=== PATIENT | female | born 1935 | race Caucasian/White ===

== ENCOUNTER 2017-09-17 11:58 | Emergency (ER) | payer MEDICARE, BC ==
--- NOTE | 2017-09-17 12:12 | EDM.PDOC ---
ED HPI GENERAL MEDICAL PROBLEM - General Stated Complaint: DIZZINESS Time Seen by Provider: 09/17/17 11:58 Source of Information: Reports: Patient, Family History Limitations: Reports: No Limitations - History of Present Illness INITIAL COMMENTS - FREE TEXT/NARRATIVE: 82 y.o.w.f with IDDM came to the ed with her SO after she was close of passing out while getting off a chair. Pt is doing fine now. She drinks a lot of water and does not think she is dehydrated. Pt i doing fine now while in supine position in the examination bed. No N/V/D or dizziness while resting. No other acute medical issues. BP 188/74 pulse 88 RR 18 Pulse ox 95 Temp 36.6 Onset Date: 09/17/17 Onset Time: 07:00 Duration: Hour(s):, Intermittent Location: Reports: Generalized Quality: Reports: Other (dizziness) Severity: Moderate Improves with: Reports: Rest Worsens with: Reports: Movement Context: Reports: Other (getting up from a chair) Associated Symptoms: Reports: Syncope (near) - Related Data Allergies Allergy/AdvReac Type Severity Reaction Status Date / Time No Known Allergies Allergy Verified 09/17/17 19:21 Home Meds: Home Meds NK [No Known Home Meds] 09/17/17 [History] ED ROS GENERAL - Review of Systems Review Of Systems: See Below Constitutional: Reports: No Symptoms HEENT: Reports: No Symptoms Respiratory: Reports: No Symptoms Cardiovascular: Reports: No Symptoms Endocrine: Reports: Other (H/O IDDM) GI/Abdominal: Reports: No Symptoms : Reports: No Symptoms Musculoskeletal: Reports: No Symptoms Skin: Reports: No Symptoms Neurological: Reports: No Symptoms Psychiatric: Reports: No Symptoms Hematologic/Lymphatic: Reports: No Symptoms Immunologic: Reports: No Symptoms - Physical Exam Exam: See Below Exam Limited By: No Limitations General Appearance: Alert, WD/WN, Mild Distress Eye Exam: Right Eye: Proptosis, Bilateral Eye: Nystagmus (BPPv) Ears: Normal External Exam Nose: Normal Inspection, Normal Mucosa, No Blood Throat/Mouth: Normal Inspection, Normal Lips, Normal Gums, Normal Voice, No Airway Compromise Head Exam: Atraumatic, Normocephalic Neck: Normal Inspection, Supple, Non-Tender Respiratory/Chest: No Respiratory Distress, Lungs Clear, Normal Breath Sounds, No Accessory Muscle Use, Chest Non-Tender Cardiovascular: Normal Peripheral Pulses, Regular Rate, Rhythm, No Edema, No Gallop, No JVD, No Murmur GI/Abdominal: Normal Bowel Sounds, Soft, Non-Tender, No Organomegaly, No Distention, No Abnormal Bruit, No Mass, Pelvis Stable (Female) Exam: Deferred Rectal (Female) Exam: Deferred Neuro Exam (Abbreviated): Alert, Oriented, CN II-XII Intact Back Exam: Normal Inspection, Full Range of Motion Extremities: Normal Inspection, Normal Range of Motion, Non-Tender, No Pedal Edema, Normal Capillary Refill Psychiatric: Normal Affect, Normal Mood Skin Exam: Warm, Dry, Intact, Normal Color, No Rash EKG INTERPRETATION EKG Date: 09/17/17 Time: 12:25 Rhythm: NSR Rate (Beats/Min): 67 [place]: Normal P-Wave: Present QRS: Normal ST-T: Normal QT: Normal Comparison: NA - No Prior EKG Course - Vital Signs Text/Narrative:: 82 y.o.w.f with IDDM came to the ed with her SO after she was close of passing out while getting off a chair. Pt is doing fine now. She drinks a lot of water and does not think she is dehydrated. Pt i doing fine now while in supine position in the examination bed. No N/V/D or dizziness while resting. No other acute medical issues. BP 188/74 pulse 88 RR 18 Pulse ox 95 Temp 36.6 PE: 82 y.o.w.f with near syncope, IDDM HTN, Luis nystagmus. Labs: CBC nl BUN 28 Cr 0.8 Glc 125 Gfr>60 BUN/CR ration > 40 UA neg Trop 0.017 BNP 550 Impression: BPPV, Dehydration, HTN Tx: NS. Antivert Reexam: Improved, pt was ambulating fine on D/C. Please check Nursing not for Vitals on discharge Plan: D/C with instructions Last Recorded V/S: Last Vital Signs Temp 36.4 C 09/17/17 16:26 Pulse 89 09/17/17 16:26 Resp 20 09/17/17 16:26 BP 185/68 H 09/17/17 16:26 Pulse Ox 99 09/17/17 16:26 Orthostatic Blood Pressure [ 181/95 Standing] Orthostatic Blood Pressure [ 163/69 Sitting] Orthostatic Blood Pressure [ 146/57 Supine] - Orders/Labs/Meds Orders: Active Orders 24 hr Category Date Time Status Blood Glucose Check, Bedside [RC] ONETIME Care 09/17/17 15:31 Active Orthostatic Vital Signs [RC] ASDIRECTED Care 09/17/17 13:07 Active UA W/MICROSCOPIC [URIN] Stat Lab 09/17/17 13:50 Ordered Peripheral IV Insertion Adult [OM.PC] Routine Oth 09/17/17 12:59 Ordered EKG 12 Lead [EK] Routine Ther 09/17/17 12:11 Ordered Labs: Laboratory Tests 09/17/17 09/17/17 09/17/17 Range/Units 12:15 12:15 12:15 WBC 6.0 (4.5-12.0) X10-3/uL RBC 4.11 (3.23-5.20) x10(6)uL Hgb 13.7 (11.5-15.5) g/dL Hct 41.0 (30.0-51.3) % MCV 99.9 H (80-96) fL MCH 33.5 (27.7-33.6) pg MCHC 33.5 (32.2-35.4) g/dL RDW 12.7 (11.5-15.5) % Plt Count 242 (125-369) X10(3)uL MPV 7.6 (7.4-10.4) fL Neut % (Auto) 66.5 (46-82) % Lymph % (Auto) 22.7 (13-37) % Leon % (Auto) 8.5 (4-12) % Eos % (Auto) 2 (1.0-5.0) % Baso % (Auto) 1 (0-2) % Neut # (Auto) 4.0 (1.6-8.3) # Lymph # (Auto) 1.4 (0.6-5.0) # Leon # (Auto) 0.5 (0.0-1.3) # Eos # (Auto) 0.1 (0.0-0.8) # Baso # (Auto) 0.0 (0.0-0.2) # Sodium 140 (135-145) mmol/L Potassium 4.2 (3.5-5.3) mmol/L Chloride 103 (100-110) mmol/L Carbon Dioxide 28 (21-32) mmol/L BUN 28 H (7-18) mg/dL Creatinine 0.7 (0.55-1.02) mg/dL Est Cr Clr Drug Dosing TNP Estimated GFR (MDRD) > 60 (>60) BUN/Creatinine Ratio 40.0 H (9-20) Glucose 154 H (80-116) mg/dL Calcium 9.5 (8.6-10.2) mg/dL Troponin I < 0.017 L (<0.017-0.056) ng/mL NT-Pro-B Natriuret Pep (<=450) pg/mL Urine Color (YELLOW) Urine Appearance (CLEAR) Urine pH (5.0-6.5) Ur Specific [place] (1.010-1.025) Urine Protein (NEGATIVE) mg/dL Urine Glucose (UA) (NEGATIVE) mg/dL Urine Ketones (NEGATIVE) mg/dL Urine Occult Blood (NEGATIVE) Urine Nitrite (NEGATIVE) Urine Bilirubin (NEGATIVE) Urine Urobilinogen (NEGATIVE) mg/dL Ur Leukocyte Esterase (NEGATIVE) Urine WBC (0) Ur Squamous Epith Cells (NS,R,O) Urine Bacteria (NS) 09/17/17 09/17/17 Range/Units 12:15 13:50 WBC (4.5-12.0) X10-3/uL RBC (3.23-5.20) x10(6)uL Hgb (11.5-15.5) g/dL Hct (30.0-51.3) % MCV (80-96) fL MCH (27.7-33.6) pg MCHC (32.2-35.4) g/dL RDW (11.5-15.5) % Plt Count (125-369) X10(3)uL MPV (7.4-10.4) fL Neut % (Auto) (46-82) % Lymph % (Auto) (13-37) % Leon % (Auto) (4-12) % Eos % (Auto) (1.0-5.0) % Baso % (Auto) (0-2) % Neut # (Auto) (1.6-8.3) # Lymph # (Auto) (0.6-5.0) # Leon # (Auto) (0.0-1.3) # Eos # (Auto) (0.0-0.8) # Baso # (Auto) (0.0-0.2) # Sodium (135-145) mmol/L Potassium (3.5-5.3) mmol/L Chloride (100-110) mmol/L Carbon Dioxide (21-32) mmol/L BUN (7-18) mg/dL Creatinine (0.55-1.02) mg/dL Est Cr Clr Drug Dosing Estimated GFR (MDRD) (>60) BUN/Creatinine Ratio (9-20) Glucose (80-116) mg/dL Calcium (8.6-10.2) mg/dL Troponin I (<0.017-0.056) ng/mL NT-Pro-B Natriuret Pep 550 H (<=450) pg/mL Urine Color Yellow (YELLOW) Urine Appearance Clear (CLEAR) Urine pH 6.0 (5.0-6.5) Ur Specific [place] 1.015 (1.010-1.025) Urine Protein Negative (NEGATIVE) mg/dL Urine Glucose (UA) Normal (NEGATIVE) mg/dL Urine Ketones Negative (NEGATIVE) mg/dL Urine Occult Blood Negative (NEGATIVE) Urine Nitrite Negative (NEGATIVE) Urine Bilirubin Negative (NEGATIVE) Urine Urobilinogen Normal (NEGATIVE) mg/dL Ur Leukocyte Esterase Negative (NEGATIVE) Urine WBC 0-5 (0) Ur Squamous Epith Cells Few H (NS,R,O) Urine Bacteria Few H (NS) Meds: Medications Discontinued Medications Generic Name Dose Route Start Last Admin Trade Name Freq PRN Reason Stop Dose Admin Sodium Chloride 1,000 mls @ 999 mls/hr 09/17/17 12:56 09/17/17 13:01 Normal Saline IV 09/17/17 13:56 999 mls/hr .BOLUS ONE Administration Meclizine HCl 50 mg 09/17/17 15:22 09/17/17 15:31 Antivert PO 09/17/17 15:23 50 mg ONETIME ONE Administration Sodium Chloride 10 ml 09/17/17 12:59 09/17/17 13:00 Saline Flush FLUSH 10 ml ASDIRECTED PRN Administration Keep Vein Open Departure - Departure Time of Disposition: 15:19 Disposition: Home, Self-Care 01 Condition: Good Clinical Impression: Vasovagal near syncope, Vertigo - Discharge Information Instructions: Meclizine tablets or capsules, Vertigo, [id number] Referrals: Shamar Humphrey MD [Primary Care Provider] - Forms: ED Department Discharge Additional Instructions: please increase water intake, please cont your current meds, take antivert for dizziness, please f/u with your PMD, come back if your symptoms get worse acutely - My Orders Last 24 Hours: My Active Orders 09/17/17 12:11 EKG 12 Lead [EK] Routine 09/17/17 12:59 Peripheral IV Insertion Adult [OM.PC] Routine 09/17/17 13:07 Orthostatic Vital Signs [RC] ASDIRECTED 09/17/17 13:50 UA W/MICROSCOPIC [URIN] Stat 09/17/17 15:31 Blood Glucose Check, Bedside [RC] ONETIME - Assessment/Plan Last 24 Hours: My Active Orders 09/17/17 12:11 EKG 12 Lead [EK] Routine 09/17/17 12:59 Peripheral IV Insertion Adult [OM.PC] Routine 09/17/17 13:07 Orthostatic Vital Signs [RC] ASDIRECTED 09/17/17 13:50 UA W/MICROSCOPIC [URIN] Stat 09/17/17 15:31 Blood Glucose Check, Bedside [RC] ONETIME
[2017-09-17] MEDS ORDERED: Sodium Chloride 0.9% 1,000 ML IV ONE (12:56)
[2017-09-17] MEDS ORDERED: Sodium Chloride 0.9% 10 ML Syringe FLUSH PRN (12:59)
[2017-09-17] MEDS ORDERED: Meclizine 25 MG Tab PO ONE (15:22)
[2017-09-17 16:27] VITALS: BP 185/68
== END 2017-09-17 16:40 | disposition home or self-care (01) ==
LOC: FB.ED 11:58
DX: R55 Syncope and collapse (principal); H81.10 Benign paroxysmal vertigo, unspecified ear; I10 Essential (primary) hypertension; E11.9 Type 2 diabetes mellitus without complications
CPT/HCPCS: 36415; 80048; 81001; 82962; 83880; 84484; 85025; 93005; 96360; 99284; A9270; J7030; J7050

== ENCOUNTER 2019-12-29 07:12 | Day surgery (SDC) | payer MEDICARE, BC ==
[2019-12-29] MEDS ORDERED: Midazolam 1 MG/ML 2 ML SDV IV ONE (07:13)
[2019-12-29] MEDS ORDERED: Sodium Chloride 0.9% 10 ML Syringe FLUSH PRN (07:30)
[2019-12-29] MEDS ORDERED: Lactated Ringers 1,000 ML IV SCH (07:30)
[2019-12-29] MEDS ORDERED: acetaZOLAMIDE 500 MG Cap.ER PO ONE (09:30)
[2019-12-29 12:47] VITALS: BP 151/84; PULSE 74
--- NOTE | 2019-12-30 13:01 | OR ---
DATE OF OPERATION: 12/29/2019 SURGEON: Zainab Xiao MD PREOPERATIVE DIAGNOSIS: Visually significant cataract, right eye. POSTOPERATIVE DIAGNOSIS: Visually significant cataract, right eye. PROCEDURES PERFORMED: Phacoemulsification with intraocular lens placement, right eye. ASSISTANTS: None. ANESTHESIA: Local with sedation. COMPLICATIONS: None. BLOOD LOSS: None. IMPLANTS: Jermain [id number] diopter lens implanted, serial #[id number]. CDE: 3.53. DESCRIPTION OF PROCEDURE: After risks and benefits were reviewed with the patient, consent was obtained in the preoperative area, and the operative eye was marked with a surgical pen. In the preoperative area, a pledget was used to dilate the pupil consisting of a mixture of phenylephrine 10%, cyclopentolate 2%, moxifloxacin 0.5%, and bupivacaine 0.75%. The patient was taken to the operating room, where a time-out was performed, and the patient was placed under monitored anesthesia care. Topical tetracaine was used for anesthesia. The operative eye was prepped and draped for ophthalmic surgery, and the microscope was brought into position and focused. A paracentesis incision was made, followed by injection of preservative-free 1% lidocaine into the anterior chamber, followed by injection of Viscoat into the anterior chamber. A microkeratome blade was used to make a corneal limbal incision temporally. A cystotome was used to make the beginning of the capsulorrhexis, which was carried around 360 degrees in a curvilinear fashion using Utrata forceps. A Deleon cannula with BSS was used to hydrodissect and hydrodelineate the nucleus. The nucleus was removed in a divide and conquer manner using phacoemulsification. Irrigation and aspiration were used to remove the remaining cortical material. Provisc was used to inflate the capsular bag, and a pre-loaded 16.0 diopter lens, serial number [id number] was injected into the capsular bag. A Sinskey hook was used to position and center the lens. Next, irrigation and aspiration was used to remove any remaining viscoelastic and cortical material from the anterior chamber. BSS on a cannula was used to inflate the anterior chamber and hydrate the wound. The wound was checked and found to be watertight. 1 mg of Moxifloxacin was injected into the anterior chamber. Drapes were removed and the eye was cleaned. A drop of brimonidine 0.15% and a drop of TobraDex was placed. The eye was shielded, and the patient was taken to the recovery room in stable condition. CC: Filiberto Valenzuela MD CC: Lyudmila Mercado OD CC: Zainab Xiao MD /[id number] JAROCHO/CONSTANCE
== END 2019-12-29 10:15 | disposition home or self-care (01) ==
LOC: FB.SDS 07:12
PROVIDERS: ATTEND Ophthalmology
DX: E11.36 Type 2 diabetes mellitus with diabetic cataract (principal); H25.813 Combined forms of age-related cataract, bilateral; H35.3132 Nonexudative age-related macular degeneration, bilateral, intermediate dry stage; H02.831 Dermatochalasis of right upper eyelid; H02.834 Dermatochalasis of left upper eyelid; H43.813 Vitreous degeneration, bilateral; H52.13 Myopia, bilateral; H52.223 Regular astigmatism, bilateral; E03.9 Hypothyroidism, unspecified; I10 Essential (primary) hypertension; E66.01 Morbid (severe) obesity due to excess calories; Z79.84 Long term (current) use of oral hypoglycemic drugs; Z79.82 Long term (current) use of aspirin; Z79.899 Other long term (current) drug therapy; Z68.41 Body mass index [BMI] 40.0-44.9, adult
CPT/HCPCS: 00142-QZ; 82962; 93005; A9270-GY; J2250; J7120; V2632

== ENCOUNTER 2020-01-12 06:33 | Day surgery (SDC) | payer MEDICARE, BC ==
[2020-01-12] MEDS ORDERED: Midazolam 1 MG/ML 2 ML SDV IV ONE (06:34)
[2020-01-12] MEDS ORDERED: Sodium Chloride 0.9% 10 ML Syringe FLUSH PRN (06:45)
[2020-01-12] MEDS ORDERED: Lactated Ringers 1,000 ML IV SCH (06:45)
[2020-01-12] MEDS ORDERED: acetaZOLAMIDE 500 MG Cap.ER PO ONE (06:45)
[2020-01-12 08:48] VITALS: BP 139/76; PULSE 78
--- NOTE | 2020-01-12 08:50 | OR ---
DATE OF OPERATION: 01/12/2020 SURGEON: Zainab Xiao MD PREOPERATIVE DIAGNOSIS: Visually significant cataract, left eye. POSTOPERATIVE DIAGNOSIS: Visually significant cataract, left eye. PROCEDURES PERFORMED: Phacoemulsification with intraocular lens placement, left eye. ASSISTANTS: None. ANESTHESIA: Local with sedation. COMPLICATIONS: None. BLOOD LOSS: None. IMPLANTS: An Jermain [id number] 18.0 diopter lens implanted. CDE: 3.93. DESCRIPTION OF PROCEDURE: After risks and benefits were reviewed with the patient, consent was obtained in the preoperative area, and the operative eye was marked with a surgical pen. In the preoperative area, a pledget was used to dilate the pupil consisting of a mixture of phenylephrine 10%, cyclopentolate 2%, moxifloxacin 0.5%, and bupivacaine 0.75%. The patient was taken to the operating room, where a time-out was performed, and the patient was placed under monitored anesthesia care. Topical tetracaine was used for anesthesia. The operative eye was prepped and draped for ophthalmic surgery, and the microscope was brought into position and focused. A paracentesis incision was made, followed by injection of preservative-free 1% lidocaine into the anterior chamber, followed by injection of Viscoat into the anterior chamber. A microkeratome blade was used to make a corneal limbal incision temporally. A cystotome was used to make the beginning of the capsulorrhexis, which was carried around 360 degrees in a curvilinear fashion using Utrata forceps. A Deleon cannula with BSS was used to hydrodissect and hydrodelineate the nucleus. The nucleus was removed in a divide and conquer manner using phacoemulsification. Irrigation and aspiration were used to remove the remaining cortical material. Provisc was used to inflate the capsular bag, and a pre-loaded Jermain [id number] 18.0 diopter lens, serial number [id number] was injected into the capsular bag. A Sinskey hook was used to position and center the lens. Next, irrigation and aspiration was used to remove any remaining viscoelastic and cortical material from the anterior chamber. BSS on a cannula was used to inflate the anterior chamber and hydrate the wound. The wound was checked and found to be watertight. 1 mg of Moxifloxacin was injected into the anterior chamber. Drapes were removed and the eye was cleaned. A drop of brimonidine 0.15% and a drop of TobraDex was placed. The eye was shielded, and the patient was taken to the recovery room in stable condition. /[id number] JAROCHO/CONSTANCE CC: IQRA MATTA OD CC: LIZZETH HINES MD MTDD
== END 2020-01-12 09:17 | disposition home or self-care (01) ==
LOC: FB.SDS 06:33
PROVIDERS: ATTEND Ophthalmology
DX: E11.36 Type 2 diabetes mellitus with diabetic cataract (principal); H25.813 Combined forms of age-related cataract, bilateral; H35.3132 Nonexudative age-related macular degeneration, bilateral, intermediate dry stage; H02.831 Dermatochalasis of right upper eyelid; H02.834 Dermatochalasis of left upper eyelid; H43.813 Vitreous degeneration, bilateral; H52.13 Myopia, bilateral; H52.223 Regular astigmatism, bilateral; I10 Essential (primary) hypertension; E03.9 Hypothyroidism, unspecified; E66.01 Morbid (severe) obesity due to excess calories; E78.2 Mixed hyperlipidemia; G47.30 Sleep apnea, unspecified; Z79.899 Other long term (current) drug therapy; Z79.82 Long term (current) use of aspirin; Z68.41 Body mass index [BMI] 40.0-44.9, adult
CPT/HCPCS: 00142; 66984; 82962; A9270; J2250; J7120; V2632

== ENCOUNTER 2025-04-14 13:43 | Inpatient (IN) | payer MEDICARE, BC ==
[2025-04-14 14:22] LABS: BASOPHILS ABSOLUTE AUTO 0.1 x10-3/uL (0.0-0.1); BASOPHILS PERCENT AUTO 0.9 % (0.2-1.5); EOSINOPHILS ABSOLUTE AUTO 0.1 x10-3/uL (0.0-0.8); EOSINOPHILS PERCENT AUTO 1.3 % (0.6-8.1); LYMPHOCYTES ABSOLUTE AUTO 0.8 x10-3/uL (1.0-4.4); LYMPHOCYTES PERCENT AUTO 14.0 % (18.4-52.1); MEAN PLATELET VOLUME 8.0 fL (7.1-12.4); MONOCYTES ABSOLUTE AUTO 0.6 x10-3/uL (0.3-1.0); MONOCYTES PERCENT AUTO 10.1 % (4.4-15.7); NEUTROPHILS ABSOLUTE AUTO 4.1 x10-3/uL (1.5-6.3); NEUTROPHILS PERCENT AUTO 73.7 % (30.8-76.2); PLATELET COUNT,PLT 194 x10(3)uL (151-488); RED BLOOD CELL COUNT 4.38 x10(6)uL (3.60-5.20); RED CELL DISTRIBUTION WIDTH 15.6 % (12.3-16.5); WHITE BLOOD CELL COUNT,WBC 5.6 x10-3/uL (3.0-10.3)
[2025-04-14 14:39] LABS: LACTIC ACID 1.5 mmol/L (0.4-2.0)
[2025-04-14 14:43] LABS: BLOOD UREA NITROGEN,BUN 28 mg/dL (7-18); CARBON DIOXIDE,CO2 28 mmol/L (21-32); CHLORIDE,CL 105 mmol/L (100-110); CREATININE 0.9 mg/dL (0.55-1.02); ESTIMATED GFR 61 mL/min (>60); GLUCOSE RANDOM 187 mg/dL (80-116); POTASSIUM,K 4.9 mmol/L (3.5-5.3); SODIUM,NA 140 mmol/L (135-145)
[2025-04-14 14:48] LABS: A/G RATIO 1.4; ALANINE AMINOTRANSFERASE,ALT 69 U/L (12-36); ASPARTATE AMNIOTRANSFERASE,AST 50 IU/L (5-25); BILIRUBIN TOTAL 1.4 mg/dL (0.1-1.3); PROTEIN TOTAL,TP 6.7 g/dL (6.0-8.0)
[2025-04-14 14:51] LABS: PRO B-TYPE NATRIUR PEPT,BNPPRO 7657 pg/mL (<=450)
[2025-04-14 15:02] LABS: GLUCOSE,URINE NORMAL (NORMAL); OCCULT BLOOD,URINE LARGE (NEGATIVE)
[2025-04-14 15:09] LABS: APPEARANCE,URINE CLOUDY (CLEAR); SQUAMOUS EPITHELIAL CELLS,UR FEW (NS,R,O)
[2025-04-14] MEDS: Furosemide 40 MG/4 ML VIAL IVPUSH ONE (16:16)
[2025-04-15] MEDS ORDERED: 50% Dextrose in Water 50 ML Syringe IVPUSH PRN (08:22)
[2025-04-15] MEDS: Furosemide 40 MG/4 ML VIAL IVPUSH SCH (09:12)
[2025-04-15] MEDS: Vitamin B Complex with Vitamin C Tab PO SCH (09:13)
[2025-04-15] MEDS: Beta-Carotene (Vitamin A) w/Vitamin C & E plus Minerals Tab PO SCH (09:13)
[2025-04-15 11:26] LABS: CORONAVIRUS COVID-19 NAA NEGATIVE (NEGATIVE); INFLUENZA A NAA NEGATIVE (NEGATIVE); INFLUENZA B NAA NEGATIVE (NEGATIVE); RESPIRATORY SYNCYTIAL VIR NAA NEGATIVE (NEGATIVE)
[2025-04-15] MEDS: Insulin Lispro 100 Unit/ML 3 ML KwikPen SUBCUT SCH (12:01)
[2025-04-15] MEDS: Sodium Chloride 0.9% 10 ML Syringe FLUSH PRN (15:28)
[2025-04-16 07:15] LABS: BASOPHILS ABSOLUTE AUTO 0.0 x10-3/uL (0.0-0.1); BASOPHILS PERCENT AUTO 0.8 % (0.2-1.5); EOSINOPHILS ABSOLUTE AUTO 0.1 x10-3/uL (0.0-0.8); EOSINOPHILS PERCENT AUTO 2.7 % (0.6-8.1); LYMPHOCYTES ABSOLUTE AUTO 0.8 x10-3/uL (1.0-4.4); LYMPHOCYTES PERCENT AUTO 15.4 % (18.4-52.1); MEAN PLATELET VOLUME 8.0 fL (7.1-12.4); MONOCYTES ABSOLUTE AUTO 0.6 x10-3/uL (0.3-1.0); MONOCYTES PERCENT AUTO 11.4 % (4.4-15.7); NEUTROPHILS ABSOLUTE AUTO 3.8 x10-3/uL (1.5-6.3); NEUTROPHILS PERCENT AUTO 69.7 % (30.8-76.2); PLATELET COUNT,PLT 174 x10(3)uL (151-488); RED BLOOD CELL COUNT 4.15 x10(6)uL (3.60-5.20); RED CELL DISTRIBUTION WIDTH 14.8 % (12.3-16.5); WHITE BLOOD CELL COUNT,WBC 5.4 x10-3/uL (3.0-10.3)
[2025-04-16 07:25] LABS: BLOOD UREA NITROGEN,BUN 23 mg/dL (7-18); CARBON DIOXIDE,CO2 29 mmol/L (21-32); CHLORIDE,CL 105 mmol/L (100-110); CREATININE 0.8 mg/dL (0.55-1.02); EST CRCL DRUG DOSING (CG) 51.55 mL/min; ESTIMATED GFR 70 mL/min (>60); GLUCOSE RANDOM 150 mg/dL (80-116); POTASSIUM,K 3.7 mmol/L (3.5-5.3); SODIUM,NA 143 mmol/L (135-145)
[2025-04-16] MEDS: Magnesium Sulfate 2 GM/50 mL 2 GM in Premix Bag 1 BAG IV ONE (09:20)
[2025-04-16 14:27] VITALS: BP 149/78; PULSE 71
[2025-04-16] MEDS ORDERED: Vitamin B Complex with Vitamin C Tab PO SCH (21:00)
[2025-04-16] MEDS ORDERED: Beta-Carotene (Vitamin A) w/Vitamin C & E plus Minerals Tab PO SCH (21:00)
== END 2025-04-16 13:42 | DRG 291 ==
LOC: FB.ED 13:43 → FB.MS 16:55
PROVIDERS: ADMIT Family Medicine; ATTEND Internal Medicine
DX: I11.0 Hypertensive heart disease with heart failure (principal); I50.33 Acute on chronic diastolic (congestive) heart failure; I50.9 Heart failure, unspecified; N30.01 Acute cystitis with hematuria; E11.65 Type 2 diabetes mellitus with hyperglycemia; I48.91 Unspecified atrial fibrillation; Z79.890 Hormone replacement therapy; E11.9 Type 2 diabetes mellitus without complications; E78.00 Pure hypercholesterolemia, unspecified; G47.30 Sleep apnea, unspecified; E03.9 Hypothyroidism, unspecified; E66.9 Obesity, unspecified; I27.20 Pulmonary hypertension, unspecified; M19.012 Primary osteoarthritis, left shoulder; E83.42 Hypomagnesemia; Z79.1 Long term (current) use of non-steroidal anti-inflammatories (NSAID); Z68.32 Body mass index [BMI] 32.0-32.9, adult; Z79.899 Other long term (current) drug therapy
CPT/HCPCS: 36415; 71045; 80053; 81001; 83605; 83735; 83880; 84484; 85025; 86140; 87086; 87088; 87186; 87428; 93005; 96374; 96375; 99285; J0696; J1938; 74019; 74019-26; 80048; 82947; 83036; 87637; 93010; 97161-GP; 99223; 99238; A9270-GY; J3475; J7030